=== PATIENT | male | born 1995 | race Caucasian/White ===

== ENCOUNTER 2017-04-26 14:32 | Emergency (ER) | payer SELFPAY ==
[~2017-04-26] VITALS: Ht 170.2 cm; Wt 79.4 kg
[2017-04-26 15:15] LABS: BILIRUBIN,URINE NEGATIVE (NEGATIVE); KETONES,URINE NEGATIVE (NEGATIVE); LEUKOCYTE ESTERASE ,URINE NEGATIVE (NEGATIVE); NITRITE,URINE NEGATIVE (NEGATIVE); PH,URINE 8 (5-9); PROTEIN,URINE NEGATIVE (NEGATIVE); UROBILINOGEN,URINE NORMAL (NORMAL)
[2017-04-26 15:16] LABS: SQUAMOUS EPITHELIAL CELL,UR RARE /HPF; WBC,URINE RARE /HPF
--- NOTE | 2017-04-26 15:35 | ED General ---
General Chief Complaint: Back Problems Stated Complaint: KIDNEY PAIN Nursing Triage Note: PT ARRIVED PER EMS PT CO OF POSSIBLE KIDNEY STONE, CO OF PAIN IN R AND L FLANK AREA FOR APPROX 1 WEEK. Nursing Sepsis Screen: No Definite Risk Source of Information: Patient Exam Limitations: No Limitations History of Present Illness Time Seen by Provider: 15:35 Allergies and Home Medications Allergies Coded Allergies: No Known Drug Allergies (Unverified , 04/26/17) Home Medications No Active Prescriptions or Reported Meds Past Bsicxar-Clersm-Lqeawo Hx Patient Social History Recent Foreign Travel: No Contact w/Someone Who Travel: No Recent Infectious Disease Expo: No Physical Exam Vital Signs Vital Sign - Last 12Hours 04/26/17 14:35 Temp 97.1 Pulse 83 Resp 19 B/P (MAP) 150/98 Capillary Refill : Less Than 3 Seconds Progress/Results/Core Measures Suspected Sepsis Recent Fever Within 48 Hours: No Infection Criteria Present: None New/Unexplained Altered Menta: No Sepsis Screen: No Definite Risk Sepsis Diagnosis: SIRS Temperature:97.1 Pulse: 83 Respiratory Rate: 19 Laboratory Tests 04/26/17 16:25: White Blood Count 6.4 Blood Pressure 150 /98 Mean: 115 Laboratory Tests 04/26/17 16:25: Creatinine 0.81, Platelet Count 201, Total Bilirubin 0.5 Results/Orders Lab Results Laboratory Tests Test 04/26/17 14:43 04/26/17 16:25 Range/Units Urine Color YELLOW Urine Clarity CLEAR Urine pH 8 5-9 Urine Specific [place] 1.015 L 1.016-1.022 Urine Protein NEGATIVE NEGATIVE Urine Glucose (UA) NEGATIVE NEGATIVE Urine Ketones NEGATIVE NEGATIVE Urine Nitrite NEGATIVE NEGATIVE Urine Bilirubin NEGATIVE NEGATIVE Urine Urobilinogen NORMAL NORMAL MG/DL Urine Leukocyte Esterase NEGATIVE NEGATIVE Urine RBC (Auto) NEGATIVE NEGATIVE Urine RBC NONE /HPF Urine WBC RARE /HPF Urine Squamous Epithelial Cells RARE /HPF Urine Renal Epithelial Cells NONE /HPF Urine Crystals NONE /LPF Urine Bacteria NEGATIVE /HPF Urine Casts NONE /LPF Urine Mucus NEGATIVE /LPF Urine Culture Indicated NO White Blood Count 6.4 4.3-11.0 10^3/uL Red Blood Count 4.74 4.35-5.85 10^6/uL Hemoglobin 14.8 13.3-17.7 G/DL Hematocrit 43 40-54 % Mean Corpuscular Volume 90 80-99 FL Mean Corpuscular Hemoglobin 31 25-34 PG Mean Corpuscular Hemoglobin Concent 35 32-36 G/DL Red Cell Distribution Width 12.6 10.0-14.5 % Platelet Count 201 130-400 10^3/uL Mean Platelet Volume 9.9 7.4-10.4 FL Neutrophils (%) (Auto) 59 42-75 % Lymphocytes (%) (Auto) 27 12-44 % Monocytes (%) (Auto) 12 0-12 % Eosinophils (%) (Auto) 2 0-10 % Basophils (%) (Auto) 0 0-10 % Neutrophils # (Auto) 3.7 1.8-7.8 X 10^3 Lymphocytes # (Auto) 1.7 1.0-4.0 X 10^3 Monocytes # (Auto) 0.7 0.0-1.0 X 10^3 Eosinophils # (Auto) 0.2 0.0-0.3 10^3/uL Basophils # (Auto) 0.0 0.0-0.1 10^3/uL Sodium Level 141 135-145 MMOL/L Potassium Level 3.7 3.6-5.0 MMOL/L Chloride Level 110 H 98-107 MMOL/L Carbon Dioxide Level 25 21-32 MMOL/L Anion Gap 6 5-14 MMOL/L Blood Urea Nitrogen 6 L 7-18 MG/DL Creatinine 0.81 0.60-1.30 MG/DL Estimat Glomerular Filtration Rate > 60 BUN/Creatinine Ratio 7 Glucose Level 88 70-105 MG/DL Calcium Level 9.3 8.5-10.1 MG/DL Total Bilirubin 0.5 0.1-1.0 MG/DL Aspartate Amino Transf (AST/SGOT) 20 5-34 U/L Alanine Aminotransferase (ALT/SGPT) 13 0-55 U/L Alkaline Phosphatase 58 40-136 U/L C-Reactive Protein High Sensitivity 0.15 0.00-0.50 MG/DL Total Protein 6.7 6.4-8.2 GM/DL Albumin 4.4 3.2-4.5 GM/DL My Orders Orders - JUAQUIN FRANKLIN Urine Bedside (04/26/17 14:47) Ua Culture If Indicated (04/26/17 14:47) Saline Lock/Iv-Start (04/26/17 15:51) Cbc With Automated Diff (04/26/17 15:51) Comprehensive Metabolic Panel (04/26/17 15:51) Hs C Reactive Protein (04/26/17 15:51) Ct Abd/Pelvis Wo(Kidney Stone) (04/26/17 15:51) Ns Iv 1000 Ml (Sodium Chloride 0.9%) (04/26/17 15:51) Ketorolac Injection (Toradol Injection) (04/26/17 15:51) Medications Given in ED Current Medications Medications Dose Ordered Sig/Dereje Route Start Time Stop Time Status Last Admin Dose Admin Sodium Chloride 1,000 ml @ 0 mls/hr Q0M ONCE IV 04/26/17 15:51 04/26/17 15:53 DC 04/26/17 16:28 1,000 MLS/HR Vital Signs/I&O Vital Sign - Last 12Hours 04/26/17 14:35 Temp 97.1 Pulse 83 Resp 19 B/P (MAP) 150/98 Capillary Refill : Less Than 3 Seconds Blood Pressure Mean: 115 Diagnostic Imaging Diagonstic Imaging: CT Plain Films/CT/US/NM/MRI: abdomen, pelvis Comments FINDINGS: There are bilateral intrarenal stones, left greater than right. The largest calculus is within the left upper pole calyx, measuring 5.5 mm. There are at least two additional lower left renal calyceal stones, measuring 4 mm and 2 mm. The right kidney contains three stones, the largest is 3 mm. No opaque ureteral calculi. There is no hydronephrosis and no perinephric or periureteric edema. The unopacified urinary bladder had an unremarkable appearance. There is no appendicitis or diverticulitis. The liver, gallbladder, bile ducts, spleen, adrenals and pancreas are unremarkable. The aorta is nonaneurysmal. No focal inflammatory process. IMPRESSION: Bilateral intrarenal stones. No hydronephrosis or opaque ureteral calculus. Dictated on workstation # [id number] Reviewed: Reviewed by Me (radiology report reviewed by me ) Departure Impression Impression: Primary Impression: Renal colic Disposition: 01 HOME, SELF-CARE Condition: Improved Departure-Patient Inst. Decision time for Depature: 17:36 Patient Instructions: Renal Colic (DC) Add. Discharge Instructions: All discharge instructions reviewed with patient and/or family. Voiced understanding. Medications as instructed. Tylenol Extra Strength over-the- counter as directed for pain. Drink plenty of fluids. Follow-up with your primary care provider for recheck as outpatient, call for appointment time. Return to the emergency department for worsened symptoms or any other concerns. Scripts Naproxen (Naprosyn) 500 Mg Tablet 500 MG PO BID Y for pain, #14 TAB 0 Refills Prov: JUAQUIN FRANKLIN 04/26/17 Phenazopyridine HCl (Pyridium) 200 Mg Tablet 1 TAB PO TID Y for SPASMS, #14 TAB 0 Refills Prov: JUAQUIN FRANKLIN 04/26/17 JUAQUIN FRANKLIN Apr 26, 2017 15:35
[2017-04-26] MEDS ORDERED: KETOROLAC 30 MG/ML VIAL IVP STA (15:51)
[2017-04-26] MEDS ORDERED: NS IV 1000 ML 1,000 ML IV ONE (15:51)
[2017-04-26 16:39] LABS: BASOPHILS % (AUTO) 0 % (0-10); EOSINOPHILS # (AUTO) 0.2 10^3/uL (0.0-0.3); EOSINOPHILS % (AUTO) 2 % (0-10); LYMPHOCYTES # (AUTO) 1.7 X 10^3 (1.0-4.0); LYMPHOCYTES % (AUTO) 27 % (12-44); MEAN CORPUSCULAR HEMOGLOBIN 31 PG (25-34); MEAN CORPUSCULAR HGB CONC 35 G/DL (32-36); MEAN CORPUSCULAR VOLUME 90 FL (80-99); MEAN PLATELET VOLUME 9.9 FL (7.4-10.4); MONOCYTES # (AUTO) 0.7 X 10^3 (0.0-1.0); MONOCYTES % (AUTO) 12 % (0-12); NEUTROPHILS # (AUTO) 3.7 X 10^3 (1.8-7.8); NEUTROPHILS % (AUTO) 59 % (42-75); PLATELET COUNT 201 10^3/uL (130-400); RED BLOOD COUNT 4.74 10^6/uL (4.35-5.85); RED CELL DISTRIBUTION WIDTH 12.6 % (10.0-14.5); WHITE BLOOD COUNT 6.4 10^3/uL (4.3-11.0)
--- NOTE | 2017-04-26 16:45 | Diagnostic Imaging Report ---
PROCEDURE: CT urinary tract, rule out kidney stone. TECHNIQUE: Multiple contiguous axial images were obtained through the abdomen and pelvis without the use of intravenous contrast. INDICATION: Left flank pain. FINDINGS: There are bilateral intrarenal stones, left greater than right. The largest calculus is within the left upper pole calyx, measuring 5.5 mm. There are at least two additional lower left renal calyceal stones, measuring 4 mm and 2 mm. The right kidney contains three stones, the largest is 3 mm. No opaque ureteral calculi. There is no hydronephrosis and no perinephric or periureteric edema. The unopacified urinary bladder had an unremarkable appearance. There is no appendicitis or diverticulitis. The liver, gallbladder, bile ducts, spleen, adrenals and pancreas are unremarkable. The aorta is nonaneurysmal. No focal inflammatory process. IMPRESSION: Bilateral intrarenal stones. No hydronephrosis or opaque ureteral calculus. Dictated by: Dictated on workstation # [id number]
[2017-04-26 16:58] LABS: ALANINE AMINOTRANSFERASE 13 U/L (0-55); ALBUMIN 4.4 GM/DL (3.2-4.5); ANION GAP 6 MMOL/L (5-14); ASPARTATE AMINO TRANSFERASE 20 U/L (5-34); BILIRUBIN,TOTAL 0.5 MG/DL (0.1-1.0); BLOOD UREA NITROGEN 6 MG/DL (7-18); BUN/CREATININE RATIO 7; CALCIUM 9.3 MG/DL (8.5-10.1); CARBON DIOXIDE 25 MMOL/L (21-32); CHLORIDE 110 MMOL/L (98-107); CREATININE SERUM 0.81 MG/DL (0.60-1.30); GFR ESTIMATED > 60; GLUCOSE 88 MG/DL (70-105); POTASSIUM 3.7 MMOL/L (3.6-5.0); SODIUM 141 MMOL/L (135-145); TOTAL PROTEIN 6.7 GM/DL (6.4-8.2); hs C REACTIVE PROTEIN 0.15 MG/DL (0.00-0.50)
[2017-04-26] MEDS ORDERED: NAPR500T PO (17:38)
[2017-04-26] MEDS ORDERED: PHEN-640 PO (17:38)
[2017-04-26] MEDS ORDERED: TAMS0.4C98 PO (17:47)
[2017-04-26 17:54] VITALS: BP 132/72
== END 2017-04-26 17:54 | disposition home or self-care (01) ==
LOC: EDUNIT# 14:32 → ER 14:34
DX: N23 Unspecified renal colic (principal)
CPT/HCPCS: 36415; 74176; 80053; 81000; 85025; 86141

== ENCOUNTER 2018-01-17 21:39 | Emergency (ER) | payer SELFPAY ==
[~2018-01-17] VITALS: Ht 172.7 cm; Wt 79.4 kg
[~2018-01-17 21:39] MED LIST: IBUP-2055 PO; NAPR-1071 PO; PANT40TA2 PO; PHEN-640 PO; SUCR1TAB36 PO; TAMS0.4C98 PO
[2018-01-17] MEDS ORDERED: ORPHENADRINE 60 MG/2 ML (NORFLEX) AMP IM ONE (22:00)
[2018-01-17] MEDS ORDERED: KETOROLAC 60 MG/2 ML VIAL IM ONE (22:00)
--- NOTE | 2018-01-17 22:05 | ED Chest Pain ---
General Stated Complaint: CHEST PAIN Source: patient Exam Limitations: no limitations History of Present Illness Date Seen by Provider: Jan 17, 2018 Time Seen by Provider: 22:02 Initial Comments To ER with reports of left-sided chest pain. This began about 7:30. The pain is worsened by certain movements. He recently started a new job at [email or web address] and hasn 't been moving much until starting this job. He believes that the activity at [email or web address] has caused him to twist and tweaked a muscle. This pain began at 7 AM this morning. He denies any fevers or chills or cardiac history. Timing/Duration: 12 hours Severity/Quality: moderate Location: central Radiation: no radiation Activities at Onset: none ASA po PRODUCT DEVELOPMENT ENGINEER: No NTG SL PRODUCT DEVELOPMENT ENGINEER: No Associated Symptoms: No shortness of breath Allergies and Home Medications Allergies Coded Allergies: No Known Drug Allergies (Unverified , 04/26/17) Home Medications Ibuprofen 200 Mg Tablet, 800 MG PO BID, (Reported) Pantoprazole Sodium 40 Mg Tablet.dr, 40 MG PO DAILY Prescribed by: THAIS DEUTSCH on 10/21/17 134 Sucralfate 1 Gm Tablet, 1 GM PO ACHS Prescribed by: THAIS DEUTSCH on 10/21/17 1340 Patient Home Medication List Home Medication List Reviewed: Yes Review of Systems Constitutional: see HPI; No chills, No fever EENTM: No Symptoms Reported Respiratory: See HPI Cardiovascular: See HPI, Chest Pain Gastrointestinal: No Symptoms Reported Genitourinary: No Symptoms Reported Musculoskeletal: no symptoms reported Skin: no symptoms reported Psychiatric/Neurological: No Symptoms Reported Endocrine: No Symptoms Reported Past Cqlixvr-Qhgmkr-Bfsbmc Hx Patient Social History Alcohol Beverage of Choice: Beer Drug of Choice: Marijuana Type Used: Cigarettes 2nd Hand Smoke Exposure: Yes Recent Hopitalizations: No Immunizations Up To Date Tetanus Booster (TDap): Less than 5yrs PED Vaccines UTD: Yes Seasonal Allergies Seasonal Allergies: No Past Medical History Surgeries: Yes (Ureteroscopy) Respiratory: No Cardiac: No Neurological: No Genitourinary: Yes Kidney Stones Gastrointestinal: No Musculoskeletal: No Endocrine: No HEENT: No Cancer: No Psychosocial: No Integumentary: No Family Medical History No Pertinent Family Hx Physical Exam Vital Signs Capillary Refill : Height, Weight, BMI Height: 5'7.00" Weight: 170lbs. oz. 77.375015tl; BMI Method:Stated General Appearance: No Apparent Distress, WD/WN HEENT: PERRL/EOMI, TMs Normal Neck: Full Range of Motion, Normal Inspection Respiratory: No Accessory Muscle Use, No Respiratory Distress Cardiovascular: Regular Rate, Rhythm, Normal Peripheral Pulses Extremity: Normal Capillary Refill, Normal Inspection Neurologic/Psychiatric: Alert, Oriented x3 Skin: Normal Color, Warm/Dry Progress/Results/Core Measures Results/Orders My Orders Orders - THAIS DEUTSCH APRN Ketorolac Injection (Toradol Injection) (01/17/18 22:00) Orphenadrine Injection (Norflex Injectio (01/17/18 22:00) Ekg Tracing (01/17/18 22:00) Chest Pa/Lat (2 View) (01/17/18 22:00) Departure Impression Primary Impression: Chest wall pain Disposition: 01 HOME, SELF-CARE Condition: Stable Departure-Patient Inst. Decision time for Depature: 22:04 Referrals: NO,LOCAL PHYSICIAN (PCP/Family) Primary Care Physician Patient Instructions: Muscle Strain Add. Discharge Instructions: 1. Tylenol and Motrin for pain control 2. Return to ER for any concerns 3. THAIS DEUTSCH APRN Jan 17, 2018 22:05
[2018-01-17 22:27] VITALS: BP 163/117
--- NOTE | 2018-01-18 07:32 | Diagnostic Imaging Report ---
Indication: Chest pain. PA and lateral views were obtained. Findings: Heart size is normal. Mediastinum is unremarkable. No pleural effusion or pneumothorax. There is a patchy infiltrate in the right lower lobe. Impression: Questionable patchy infiltrate in the right lower lobe, may reflect early pneumonia. Recommend clinical correlation. Dictated by: Dictated on workstation # [id number]
== END 2018-01-17 22:27 | disposition home or self-care (01) ==
LOC: EDUNIT# 21:39 → ER 21:40
DX: R07.89 Other chest pain (principal); F12.10 Cannabis abuse, uncomplicated; Z87.442 Personal history of urinary calculi; Z77.22 Contact with and (suspected) exposure to environmental tobacco smoke (acute) (chronic)
CPT/HCPCS: 71046; 93005; 96372

== ENCOUNTER 2018-02-13 03:31 | Emergency (ER) | payer SELFPAY ==
[~2018-02-13] VITALS: Ht 170.2 cm; Wt 81.6 kg
[2018-02-13 03:47] LABS: BILIRUBIN,URINE NEGATIVE (NEGATIVE); CLARITY,URINE CLEAR; COLOR,URINE YELLOW; GLUCOSE, URINE (UA) NEGATIVE (NEGATIVE); KETONES,URINE NEGATIVE (NEGATIVE); LEUKOCYTE ESTERASE ,URINE NEGATIVE (NEGATIVE); NITRITE,URINE NEGATIVE (NEGATIVE); PH,URINE 6 (5-9); PROTEIN,URINE NEGATIVE (NEGATIVE); UROBILINOGEN,URINE NORMAL (NORMAL)
[2018-02-13 03:53] LABS: BACTERIA,URINE NEGATIVE /HPF; RBC,URINE 0-2 /HPF; SQUAMOUS EPITHELIAL CELL,UR RARE /HPF
[2018-02-13] MEDS ORDERED: LACTATED RINGERS 1,000 ML IV ONE ×2 (03:57→04:00)
[2018-02-13 04:04] LABS: BASOPHILS % (AUTO) 0 % (0-10); EOSINOPHILS # (AUTO) 0.3 10^3/uL (0.0-0.3); EOSINOPHILS % (AUTO) 3 % (0-10); HEMATOCRIT 44 % (40-54); HEMOGLOBIN 15.8 G/DL (13.3-17.7); LYMPHOCYTES # (AUTO) 2.2 X 10^3 (1.0-4.0); LYMPHOCYTES % (AUTO) 23 % (12-44); MEAN CORPUSCULAR HEMOGLOBIN 32 PG (25-34); MEAN CORPUSCULAR HGB CONC 36 G/DL (32-36); MEAN CORPUSCULAR VOLUME 89 FL (80-99); MEAN PLATELET VOLUME 9.8 FL (7.4-10.4); MONOCYTES # (AUTO) 0.9 X 10^3 (0.0-1.0); MONOCYTES % (AUTO) 10 % (0-12); NEUTROPHILS # (AUTO) 6.2 X 10^3 (1.8-7.8); NEUTROPHILS % (AUTO) 65 % (42-75); PLATELET COUNT 186 10^3/uL (130-400); RED BLOOD COUNT 4.98 10^6/uL (4.35-5.85); RED CELL DISTRIBUTION WIDTH 12.7 % (10.0-14.5); WHITE BLOOD COUNT 9.6 10^3/uL (4.3-11.0)
[2018-02-13 04:12] LABS: AMPHETAMINE SCREEN, URINE NEGATIVE (NEGATIVE); BARBITURATE SCREEN URINE NEGATIVE (NEGATIVE); BENZODIAZEPINES SCREEN URINE NEGATIVE (NEGATIVE); CANNABINOID SCREEN, URINE POSITIVE (NEGATIVE); COCAINE SCREEN URINE NEGATIVE (NEGATIVE); METHADONE STAT NEGATIVE (NEGATIVE); METHAMPHETAMINE SCREEN URINE S NEGATIVE (NEGATIVE); OPIATE SCREEN URINE NEGATIVE (NEGATIVE); OXYCODONE STAT NEGATIVE (NEGATIVE); PROPOXYPHENE STAT NEGATIVE (NEGATIVE); TRICYCLIC ANTIDEPRESSANTS SCRE NEGATIVE (NEGATIVE)
--- NOTE | 2018-02-13 04:12 | ED Back Pain ---
General Chief Complaint: -Male Stated Complaint: POSSIBLE KIDNEY STONES Nursing Triage Note: Pt ambulated to rm 6 w/o difficulty. Pt states he has hx of kidney stones. Pt c/o bilateral flank pain radiating to lower abdomen. Pt states he has been dx with kidney stones, but has not been able to establish a PCP or address the stones due to no health insurance. Pt states he does have an appt at [facility] February 16, 2018. Pt c/o dysuria; denies hematuria. Nursing Sepsis Screen: No Definite Risk Source of Information: Patient History of Present Illness Date Seen by Provider: Feb 13, 2018 Time Seen by Provider: 03:40 Initial Comments PT C/O FLANK PAIN X 3 YEARS PT STATES "PAIN FROM MY KIDNEY STONES" "SINCE MY SURGERY 3 YEARS AGO" PT STATES PAIN IS SEVERE AND CONSTANT FOR 3 YEARS AND NEVER GOES AWAY STATES PAIN IS WORSE ON THE RIGHT FOR THE LAST 2-3 DAYS DENIES RADIATION OF PAIN PT STATES HE HAD "URETEROSCOPY" TO REMOVE A KIDNEY STONE 3 YEARS AGO AT [facility] AND SINCE THEN HE HAS HAD CONSTANT SEVERE PAIN THAT NEVER GOES AWAY + NAUSEA, NO VOMITING LAST BM 2 DAYS AGO DENIES HEMATURIA OR DIFFICULTY OR PAIN ON URINATION NO FEVER HAS NOT TAKEN ANYTHING FOR PAIN AT ANY TIME STATES HE LEFT WORK AT [employer] AND CAME HERE NO PCP--STATES HE HAS A NEW PT APPOINTMENT WITH MARISSA MORRIS AT [facility] 02/16/18 NO UROLOGIST Allergies and Home Medications Allergies Coded Allergies: No Known Drug Allergies (Unverified , 04/26/17) Home Medications Cyclobenzaprine HCl 10 Mg Tablet, 10 MG PO Q8H Prescribed by: GABBY ARRINGTON on 02/13/18 0503 Naproxen 500 Mg Tablet, 500 MG PO BID Prescribed by: GABBY ARRINGTON on 02/13/18 0503 Patient Home Medication List Home Medication List Reviewed: Yes Review of Systems Constitutional: no symptoms reported Respiratory: no symptoms reported Cardiovascular: no symptoms reported Gastrointestinal: see HPI, abdominal pain, constipation, nausea; No vomiting Genitourinary: see HPI Musculoskeletal: see HPI, back pain Skin: no symptoms reported Psychiatric/Neurological: No Symptoms Reported Past Jsfpoee-Gwbfkf-Qzvbrd Hx Patient Social History Alcohol Use: Occasionally Uses Number of Drinks Today: AA Alcohol Beverage of Choice: Beer Recreational Drug Use: No Drug of Choice: Marijuana Type Used: Cigarettes 2nd Hand Smoke Exposure: Yes Recent Foreign Travel: No Contact w/Someone Who Travel: No Recent Infectious Disease Expo: No Recent Hopitalizations: No Physical Abuse: No Sexual Abuse: No Immunizations Up To Date Tetanus Booster (TDap): Less than 5yrs PED Vaccines UTD: Yes Seasonal Allergies Seasonal Allergies: No Past Medical History Surgeries: Yes (Ureteroscopy) Respiratory: No Cardiac: No Neurological: No Genitourinary: Yes Kidney Stones Gastrointestinal: No Musculoskeletal: No Endocrine: No HEENT: No Cancer: No Psychosocial: No Nursing Suicide Risk Score: 0 Integumentary: No Blood Disorders: No Family Medical History No Pertinent Family Hx Physical Exam Vital Signs Vital Signs - First Documented 02/13/18 03:36 Temp 96.9 Pulse 80 Resp 12 B/P (MAP) 132/80 (97) Pulse Ox 99 O2 Delivery Room Air Capillary Refill : Less Than 3 Seconds Height, Weight, BMI Height: 5'7.00" Weight: 180lbs. oz. 81.661533dg; BMI Method:Stated General Appearance: No Apparent Distress, WD/WN, Other (DIRTY, REEKS OF CIGARETTES) Neck: Full Range of Motion, Normal Inspection, Non Tender, Supple Cardiovascular: Regular Rate, Rhythm, No Edema, No JVD, No Murmur, Normal Peripheral Pulses Respiratory: Normal Breath Sounds, No Accessory Muscle Use, No Respiratory Distress Gastrointestinal: Normal Bowel Sounds, No Organomegaly, No Pulsatile Mass, Soft , Tenderness (DIFFUSE) Back: No Vertebral Tenderness, CVA Tenderness (L), CVA Tenderness (R) Extremity: Normal Inspection Neurologic/Psychiatric: Alert, Oriented x3, No Motor/Sensory Deficits, Normal Mood/Affect, color shop helper II-XII Norm as Tested Skin: Normal Color, Warm/Dry; No Rash Progress/Results/Core Measures Results/Orders Lab Results Laboratory Tests Test 02/13/18 03:38 02/13/18 03:52 Range/Units Urine Color YELLOW Urine Clarity CLEAR Urine pH 6 5-9 Urine Specific [place] 1.010 L 1.016-1.022 Urine Protein NEGATIVE NEGATIVE Urine Glucose (UA) NEGATIVE NEGATIVE Urine Ketones NEGATIVE NEGATIVE Urine Nitrite NEGATIVE NEGATIVE Urine Bilirubin NEGATIVE NEGATIVE Urine Urobilinogen NORMAL NORMAL MG/DL Urine Leukocyte Esterase NEGATIVE NEGATIVE Urine RBC (Auto) 1+ H NEGATIVE Urine RBC 0-2 /HPF Urine WBC NONE /HPF Urine Squamous Epithelial Cells RARE /HPF Urine Crystals NONE /LPF Urine Bacteria NEGATIVE /HPF Urine Casts NONE /LPF Urine Mucus NEGATIVE /LPF Urine Culture Indicated NO Urine Opiates Screen NEGATIVE NEGATIVE Urine Oxycodone Screen NEGATIVE NEGATIVE Urine Methadone Screen NEGATIVE NEGATIVE Urine Propoxyphene Screen NEGATIVE NEGATIVE Urine Barbiturates Screen NEGATIVE NEGATIVE Ur Tricyclic Antidepressants Screen NEGATIVE NEGATIVE Urine Phencyclidine Screen NEGATIVE NEGATIVE Urine Amphetamines Screen NEGATIVE NEGATIVE Urine Methamphetamines Screen NEGATIVE NEGATIVE Urine Benzodiazepines Screen NEGATIVE NEGATIVE Urine Cocaine Screen NEGATIVE NEGATIVE Urine Cannabinoids Screen POSITIVE H NEGATIVE White Blood Count 9.6 4.3-11.0 10^3/uL Red Blood Count 4.98 4.35-5.85 10^6/uL Hemoglobin 15.8 13.3-17.7 G/DL Hematocrit 44 40-54 % Mean Corpuscular Volume 89 80-99 FL Mean Corpuscular Hemoglobin 32 25-34 PG Mean Corpuscular Hemoglobin Concent 36 32-36 G/DL Red Cell Distribution Width 12.7 10.0-14.5 % Platelet Count 186 130-400 10^3/uL Mean Platelet Volume 9.8 7.4-10.4 FL Neutrophils (%) (Auto) 65 42-75 % Lymphocytes (%) (Auto) 23 12-44 % Monocytes (%) (Auto) 10 0-12 % Eosinophils (%) (Auto) 3 0-10 % Basophils (%) (Auto) 0 0-10 % Neutrophils # (Auto) 6.2 1.8-7.8 X 10^3 Lymphocytes # (Auto) 2.2 1.0-4.0 X 10^3 Monocytes # (Auto) 0.9 0.0-1.0 X 10^3 Eosinophils # (Auto) 0.3 0.0-0.3 10^3/uL Basophils # (Auto) 0.0 0.0-0.1 10^3/uL Sodium Level 138 135-145 MMOL/L Potassium Level 3.9 3.6-5.0 MMOL/L Chloride Level 105 98-107 MMOL/L Carbon Dioxide Level 22 21-32 MMOL/L Anion Gap 11 5-14 MMOL/L Blood Urea Nitrogen 11 7-18 MG/DL Creatinine 0.89 0.60-1.30 MG/DL Estimat Glomerular Filtration Rate > 60 BUN/Creatinine Ratio 12 Glucose Level 120 H 70-105 MG/DL Calcium Level 9.6 8.5-10.1 MG/DL Corrected Calcium 8.5-10.1 MG/DL Total Bilirubin 0.4 0.1-1.0 MG/DL Aspartate Amino Transf (AST/SGOT) 20 5-34 U/L Alanine Aminotransferase (ALT/SGPT) 14 0-55 U/L Alkaline Phosphatase 58 40-136 U/L Total Protein 7.3 6.4-8.2 GM/DL Albumin 4.9 H 3.2-4.5 GM/DL My Orders Orders - GABBY ARRINGTON DO Ua Culture If Indicated (02/13/18 03:38) Saline Lock/Iv-Start (02/13/18 03:57) Ct Abd/Pelvis Wo(Kidney Stone) (02/13/18 03:57) Cbc With Automated Diff (02/13/18 03:57) Comprehensive Metabolic Panel (02/13/18 03:57) Drug Screen Stat (Urine) (02/13/18 03:57) Acute Abd Series (02/13/18 03:57) Saline Lock/Iv-Start (02/13/18 03:57) Lactated Ringers (Lr 1000 Ml Iv Solution (02/13/18 03:57) Medications Given in ED Current Medications Medications Dose Ordered Sig/Dereje Route Start Time Stop Time Status Last Admin Dose Admin Lactated Ringer's 1,000 ml @ 0 mls/hr Q0M ONCE IV 02/13/18 03:57 02/13/18 03:58 UNV 02/13/18 04:06 1,000 MLS/HR Vital Signs/I&O 02/13/18 03:36 Temp 96.9 Pulse 80 Resp 12 B/P (MAP) 132/80 (97) Pulse Ox 99 O2 Delivery Room Air Blood Pressure Mean: 97 Diagnostic Imaging Comments ACUTE ABDOMEN XRAYS--NO ACUTE PROCESS, PENDING RADIOLOGIST REVIEW CT ABDOMEN/PELVIS--NO ACUTE PROCESS, BILATERAL NON-OBSTRUCTING CALCULI, CONSTIPATION, ENLARGED PROSTATE--PER [facility] VIA FAX @ [phone] Reviewed: Reviewed by Me Departure Impression Primary Impression: Flank pain Additional Impressions: Constipation INTRARENAL KIDNEY STONES Disposition: 01 HOME, SELF-CARE Condition: Stable Departure-Patient Inst. Referrals: NO,LOCAL PHYSICIAN (PCP/Family) Primary Care Physician Patient Instructions: Constipation, Adult (DC), Flank Pain (DC) Add. Discharge Instructions: LOTS OF CLEAR LIQUIDS HIGH FIBER DIET TAKE MIRALAX DAILY FOLLOW UP WITH MARISSA MORRIS THIS WEEK SCHEDULED FOR FURTHER CARE All discharge instructions reviewed with patient and/or family. Voiced understanding. Scripts Cyclobenzaprine HCl (Cyclobenzaprine HCl) 10 Mg Tablet 10 MG PO Q8H, #10 TAB Prov: GABBY ARRINGTON DO 02/13/18 Naproxen (Naproxen) 500 Mg Tablet 500 MG PO BID, #20 TAB Prov: GABBY ARRINGTON DO 02/13/18 GABBY ARRINGTON DO Feb 13, 2018 04:12
[2018-02-13 04:21] LABS: ALANINE AMINOTRANSFERASE 14 U/L (0-55); ALBUMIN 4.9 GM/DL (3.2-4.5); ALKALINE PHOSPHATASE 58 U/L (40-136); BILIRUBIN,TOTAL 0.4 MG/DL (0.1-1.0); BUN/CREATININE RATIO 12; CALCIUM 9.6 MG/DL (8.5-10.1); CARBON DIOXIDE 22 MMOL/L (21-32); CHLORIDE 105 MMOL/L (98-107); CREATININE SERUM 0.89 MG/DL (0.60-1.30); GFR ESTIMATED > 60; GLUCOSE 120 MG/DL (70-105); POTASSIUM 3.9 MMOL/L (3.6-5.0); SODIUM 138 MMOL/L (135-145); TOTAL PROTEIN 7.3 GM/DL (6.4-8.2)
[2018-02-13] MEDS ORDERED: CYCL10TA9 PO (05:03)
[2018-02-13] MEDS ORDERED: NAPR-915 PO (05:03)
[2018-02-13 05:14] VITALS: BP 130/80
--- NOTE | 2018-02-13 07:08 | Diagnostic Imaging Report ---
PROCEDURE: CT urinary tract, rule out kidney stone. TECHNIQUE: Multiple contiguous axial images were obtained through the abdomen and pelvis without the use of intravenous contrast. INDICATION: Bilateral flank pain. Comparison made with prior examination 10/21/2017. FINDINGS: The heart size is normal. The lung bases are clear. The liver is normal in size without focal lesions. Gallbladder is unremarkable. No biliary ductal dilatation. Spleen is normal. The pancreas and adrenal glands are unremarkable. There is bilateral nephrolithiasis without evidence of obstructive uropathy. Aorta is nonaneurysmal. Bowel gas pattern is nonspecific. There is moderate amount of retained fecal material likely reflecting some degree of constipation. There is no free air. There is no ascites. No focal inflammatory changes. There is some enlargement of prostate. Bladder is normal. The osseous structures are unremarkable. IMPRESSION: Bilateral nephrolithiasis. Moderate amount of retained fecal material likely reflecting some degree of constipation. No other acute abnormality in the abdomen or pelvis. Dictated by: Dictated on workstation # [id number]
--- NOTE | 2018-02-13 07:13 | Diagnostic Imaging Report ---
INDICATION: Flank pain. FINDINGS: Heart size is normal. Lungs are clear. There is no pleural effusion or pneumothorax. Bowel gas pattern is nonspecific. There is no free air. There are no abnormal abdominal calcifications. The osseous structures are unremarkable. IMPRESSION: No acute cardiopulmonary abnormality. Nonspecific bowel gas pattern Dictated by: Dictated on workstation # [id number]
== END 2018-02-13 05:18 | disposition home or self-care (01) ==
LOC: EDUNIT# 03:31 → ER 03:32
DX: N20.0 Calculus of kidney (principal); K59.00 Constipation, unspecified; F12.10 Cannabis abuse, uncomplicated; Z77.22 Contact with and (suspected) exposure to environmental tobacco smoke (acute) (chronic); Z87.442 Personal history of urinary calculi
CPT/HCPCS: 36415; 74022; 74176; 80053; 80306; 81000; 85025; 96360

== ENCOUNTER 2018-06-15 18:56 | Emergency (ER) | payer SELFPAY, OTHER | END 2018-06-15 20:15 | disposition home or self-care (01) | LOC: ER 18:56 ==

== ENCOUNTER 2018-08-23 03:56 | Emergency (ER) | payer SELFPAY ==
[~2018-08-23] VITALS: Ht 170.2 cm; Wt 77.1 kg
[~2018-08-23 03:56] MED LIST changes: +CYCL10TA9 PO; +NAPR-915 PO
[2018-08-23] MEDS ORDERED: BUTA1TAB9 (04:19)
[2018-08-23] MEDS ORDERED: ALPR1TAB7 (04:19)
--- NOTE | 2018-08-23 04:23 | ED Upper Extremity ---
General Stated Complaint: MUSCLE SPASMS IN CHEST AREA Source: patient Exam Limitations: no limitations History of Present Illness Date Seen by Provider: Aug 23, 2018 Time Seen by Provider: 04:09 Initial Comments The patient presents to ER by private conveyance with chief complaint that about 1-2 hours prior to arrival he began to experience some twitching muscle spasms in his left pectoralis. He is not really having any pain in her not tachypneic constant. He's not had any recent work out or injury to his pectoralis muscles. He's not been dehydrated, nausea vomiting or diarrhea. He's never had muscle cramps or muscle spasm before like this. No other significant medical history. Allergies and Home Medications Allergies Coded Allergies: No Known Drug Allergies (Unverified , 04/26/17) Home Medications Cyclobenzaprine HCl 10 Mg Tablet, 10 MG PO Q8H Prescribed by: GABBY ARRINGTON on 02/13/18 0503 Naproxen 500 Mg Tablet, 500 MG PO BID Prescribed by: GABBY ARRINGTON on 02/13/18 0503 Patient Home Medication List Home Medication List Reviewed: Yes Review of Systems Constitutional: No chills, No diaphoresis EENTM: No ear pain, No eye pain Respiratory: No cough, No short of breath Gastrointestinal: No abdominal pain, No nausea Past Sdypekr-[id number]-[id number] Hx Patient Social History Alcohol Use: Occasionally Uses Alcohol Beverage of Choice: Beer Recreational Drug Use: Yes Drug of Choice: Marijuana Smoking Status: Current Everyday Smoker Type Used: Cigarettes 2nd Hand Smoke Exposure: Yes Recent Foreign Travel: No Contact w/Someone Who Travel: No Recent Hopitalizations: No Immunizations Up To Date Tetanus Booster (TDap): Less than 5yrs PED Vaccines UTD: Yes Seasonal Allergies Seasonal Allergies: No Past Medical History Surgeries: Yes (Ureteroscopy) Respiratory: No Cardiac: No Neurological: No Genitourinary: Yes Kidney Stones Gastrointestinal: No Musculoskeletal: No Endocrine: No HEENT: No Cancer: No Psychosocial: No Integumentary: No Blood Disorders: No Family Medical History No Pertinent Family Hx Physical Exam Vital Signs Capillary Refill : Height, Weight, BMI Height: 5'7.00" Weight: 170lbs. oz. [id number]; BMI Method:Stated General Appearance: WD/WN, no apparent distress HEENT: PERRL/EOMI, pharynx normal Cardiovascular: normal peripheral pulses, regular rate, rhythm, no edema Respiratory: chest non-tender, lungs clear, normal breath sounds, no respiratory distress, no accessory muscle use Neurologic/Tendon: normal sensation, normal motor functions Neurologic/Psychiatric: alert, oriented x 3, other (mildly anxious) Skin: normal color, warm/dry Departure Impression Primary Impression: Muscle spasm Disposition: 01 HOME, SELF-CARE Condition: Stable Departure-Patient Inst. Decision time for Depature: 04:19 Referrals: [facility] (PCP/Family) Primary Care Physician Patient Instructions: Muscle Spasms (DC) Add. Discharge Instructions: A sports drinks such as Gatorade or Powerade once a day for the next couple days to make sure you're not low on any of your salts in your blood. A glass of jo tessa at night may help reduce the incidence if this becomes a recurrent problem. If you can't get it calmed down over a week then you should follow-up with primary care and discuss other modalities. GABRIELE PALACIOS Aug 23, 2018 04:22
[2018-08-23 04:26] VITALS: BP 155/96
== END 2018-08-23 04:24 | disposition home or self-care (01) ==
LOC: EDUNIT# 03:56 → ER 03:58
DX: M62.830 Muscle spasm of back (principal); F12.10 Cannabis abuse, uncomplicated; F17.210 Nicotine dependence, cigarettes, uncomplicated; Z87.442 Personal history of urinary calculi
CPT/HCPCS: 99281